=== PATIENT | male | born 1970 | race Caucasian/White ===

== ENCOUNTER 2020-01-22 22:22 | Emergency (ER) | payer BC, OTHER ==
[~2020-01-22] VITALS: Ht 175.3 cm; Wt 77.1 kg
[2020-01-22 22:22] VITALS: BP 140/93
[2020-01-22] MEDS ORDERED: FLUORESCEIN SODIUM OPHTH 1 EA STRIP ONE (22:52)
[2020-01-22] MEDS ORDERED: SOD BORATE/BORIC AC/H2O/NACL 118 ML BOTTLE ONE (22:53)
[2020-01-22] MEDS ORDERED: SOD BORATE/BORIC AC/H2O/NACL 118 ML BOTTLE OP ONE (23:00)
[2020-01-22] MEDS ORDERED: diphenhydrAMINE HCL 25 MG CAPSULE PO ONE (23:00)
[2020-01-22] MEDS ORDERED: TETRAcaine 5 ML BOTTLE EACHEYE ONE (23:00)
[2020-01-22] MEDS ORDERED: diphenhydrAMINE HCL 50 MG/ML VIAL IV ONE (23:00)
[2020-01-22] MEDS ORDERED: diphenhydrAMINE HCL 25 MG CAPSULE ONE (23:03)
== END 2020-01-22 23:39 | disposition home or self-care (01) ==
LOC: ER 22:26
DX: H10.13 Acute atopic conjunctivitis, bilateral (principal); E03.9 Hypothyroidism, unspecified; Z88.0 Allergy status to penicillin
CPT/HCPCS: 99283; Q0163

== ENCOUNTER 2020-09-12 10:47 | Emergency (ER) | payer BC ==
[~2020-09-12] VITALS: Ht 175.3 cm; Wt 77.1 kg
[2020-09-12 11:00] VITALS: BP 126/89
--- NOTE | 2020-09-12 11:04 | NUR ---
SEEN AND EXAMINED BY .
--- NOTE | 2020-09-12 11:45 | NUR ---
JOSSELIN WRAP APPLIED BY [employer]
--- NOTE | 2020-09-12 11:57 | NUR ---
Patient discharged to home in stable condition. Written and verbal after care instructions given. Patient verbalizes understanding of instruction.
== END 2020-09-12 12:00 | disposition home or self-care (01) ==
LOC: ER 10:54
DX: S93.492A Sprain of other ligament of left ankle, initial encounter (principal); S80.212A Abrasion, left knee, initial encounter; E03.9 Hypothyroidism, unspecified; Z88.0 Allergy status to penicillin; X50.1XXA Overexertion from prolonged static or awkward postures, initial encounter; Y93.21 Activity, ice skating; Y92.331 Roller skating rink as the place of occurrence of the external cause; Y99.8 Other external cause status
CPT/HCPCS: 73610-TC

== ENCOUNTER 2021-06-04 18:10 | Emergency (ER) | payer BC ==
[~2021-06-04] VITALS: Ht 167.6 cm; Wt 79.4 kg
[2021-06-04 18:30] VITALS: BP 132/77
[2021-06-04] MEDS ORDERED: TDAP [DIPH/PERTUSSIS/TET] 0.5 ML VIAL IM ONE ×2 (18:59→19:00)
--- NOTE | 2021-06-04 19:06 | NUR ---
Wound on Left back cleaned and stapled by MD. Patient discharged to home in stable condition. Written and verbal after care instructions given. Patient verbalizes understanding of instruction.
== END 2021-06-04 19:07 | disposition home or self-care (01) ==
LOC: ER 18:13
DX: S01.01XA Laceration without foreign body of scalp, initial encounter (principal); S50.312A Abrasion of left elbow, initial encounter; S80.212A Abrasion, left knee, initial encounter; S09.8XXA Other specified injuries of head, initial encounter; E03.9 Hypothyroidism, unspecified; Z88.0 Allergy status to penicillin; V00.131A Fall from skateboard, initial encounter; Y93.89 Activity, other specified; Y92.89 Other specified places as the place of occurrence of the external cause; Y99.8 Other external cause status
CPT/HCPCS: 90715